=== PATIENT | female | born 1990 | race Caucasian/White ===

== ENCOUNTER → 2021-11-23 03:37 | Observation (INO) | END | disposition home or self-care (01) | LOC: 1NENULAB | PROVIDERS: ADMIT Advanced Practice Midwife; ATTEND Advanced Practice Midwife ==

== ENCOUNTER 2022-01-31 18:27 | Inpatient (IN) ==
[2022-02-01 00:49] LABS: Basophils # 0.1 K/mcL (0.0-0.2); Basophils % 0.5 %; Eosinophils # 0.2 K/mcL (0.0-0.6); Eosinophils % 1.4 %; Immature Granulocytes % 1.5 % (0-4); Lymphocytes # 3.1 K/mcL (0.6-4.6); Mean Corpuscular HGB Conc 30.9 g/dL (31.6-35.5); Mean Corpuscular Hemoglobin 29.5 pg (28.0-33.3); Mean Corpuscular Volume 95.2 fL (83.0-100.0); Mean Platelet Volume 10.4 fL (9.4-12.4); Monocytes # 0.7 K/mcL (0.0-1.3); Monocytes % 6.3 %; Neutrophils # 6.9 K/mcL (1.6-8.9); Nucleated Red Blood Cells 0.5 /100 WBC (0); Platelet Count 307 K/mcL (140-400); Red Blood Count 1.46 M/mcL (3.82-4.97); Red Cell Distribution Width 13.3 % (11.5-14.5); Segmented Neutrophils % 62.3 %
[2022-02-01 00:54] LABS: Hematocrit 13.9 % (35.3-44.9); Hemoglobin 4.3 g/dL (11.5-15.4)
[2022-02-01 01:04] LABS: BUN/Creatinine Ratio 19 (6-26); Blood Urea Nitrogen 13 mg/dL (6-20); Calcium 8.7 mg/dL (8.6-10.3); Carbon Dioxide 23 mEq/L (23-29); Chloride 105 mEq/L (98-107); Glucose 90 mg/dL (70-105); Osmolality,Calculated 284 (280-300); Potassium 3.5 mEq/L (3.5-5.1); Sodium 137 mEq/L (136-145)
[2022-02-01] MEDS ORDERED: 0.9 % Sodium Chloride 250 ML ONE ×3 (01:24→09:41)
[2022-02-01 01:33] LABS: Troponin I < 0.03 ng/mL (< 0.04)
[2022-02-01] MEDS ORDERED: *HR* FentaNYL (PF) 100 MCG/2 ML VIAL ONE (05:56)
[2022-02-01] MEDS ORDERED: *HR* Propofol 200 MG/20 ML VIAL IVP ONE (05:56)
[2022-02-01] MEDS ORDERED: *HR* Midazolam HCl 2 MG/2 ML VIAL ONE (05:56)
[2022-02-01] MEDS ORDERED: Ondansetron 4 MG/2 ML VIAL ONE (06:03)
[2022-02-01] MEDS ORDERED: Lidocaine -MPF 2% 5 ML VIAL ONE (06:03)
[2022-02-01] MEDS ORDERED: *HR* Succinylcholine 200 MG/10 ML VIAL IVP ONE (06:03)
[2022-02-01] MEDS: Ringers Solution, Lactated 1,000 ML IVC SCH (08:28)
[2022-02-01] MEDS ORDERED: miSOPROStoL 25 MCG TABLET VG SCH (09:22)
[2022-02-01] MEDS: miSOPROStoL 100 MCG TABLET VG SCH ×3 (09:46→22:41)
[2022-02-01 17:18] LABS: Basophils # 0.1 K/mcL (0.0-0.2); Basophils % 0.4 %; Eosinophils # 0.1 K/mcL (0.0-0.6); Eosinophils % 0.7 %; Immature Granulocytes % 1.4 % (0-4); Lymphocytes # 2.1 K/mcL (0.6-4.6); Lymphocytes % 18.5 %; Mean Corpuscular HGB Conc 33.3 g/dL (31.6-35.5); Mean Corpuscular Hemoglobin 30.3 pg (28.0-33.3); Mean Corpuscular Volume 90.9 fL (83.0-100.0); Mean Platelet Volume 10.1 fL (9.4-12.4); Monocytes # 0.7 K/mcL (0.0-1.3); Monocytes % 6.4 %; Neutrophils # 8.3 K/mcL (1.6-8.9); Nucleated Red Blood Cells 0.3 /100 WBC (0); Platelet Count 314 K/mcL (140-400); Red Blood Count 2.64 M/mcL (3.82-4.97); Red Cell Distribution Width 14.6 % (11.5-14.5); Segmented Neutrophils % 72.6 %; White Blood Count 11.5 K/mcL (4.3-11.1)
[2022-02-01 17:19] LABS: Hematocrit 23.5 % (35.3-44.9); Hemoglobin 7.6 g/dL (11.5-15.4); Mean Corpuscular HGB Conc 32.3 g/dL (31.6-35.5); Mean Corpuscular Hemoglobin 28.9 pg (28.0-33.3); Mean Corpuscular Volume 89.4 fL (83.0-100.0); Mean Platelet Volume 10.3 fL (9.4-12.4); Platelet Count 321 K/mcL (140-400); Red Blood Count 2.63 M/mcL (3.82-4.97); Red Cell Distribution Width 14.6 % (11.5-14.5); White Blood Count 11.3 K/mcL (4.3-11.1)
[2022-02-01] MEDS ORDERED: miSOPROStoL 100 MCG TABLET PO SCH (19:45)
[2022-02-01] MEDS ORDERED: Famotidine 20 MG/2 ML VIAL IVP PRN (21:51)
[2022-02-01] MEDS: Piperacillin/Tazobactam 3.375 GM in 0.9 % Sodium Chloride Mini Bag 100 ML IVPB SCH (22:04)
[2022-02-01 22:39] LABS: Basophils # 0.1 K/mcL (0.0-0.2); Basophils % 0.5 %; Eosinophils # 0.1 K/mcL (0.0-0.6); Eosinophils % 0.8 %; Hematocrit 22.7 % (35.3-44.9); Hemoglobin 7.6 g/dL (11.5-15.4); Immature Granulocytes % 1.1 % (0-4); Lymphocytes # 2.7 K/mcL (0.6-4.6); Lymphocytes % 23.3 %; Mean Corpuscular HGB Conc 33.5 g/dL (31.6-35.5); Mean Corpuscular Hemoglobin 29.9 pg (28.0-33.3); Mean Corpuscular Volume 89.4 fL (83.0-100.0); Mean Platelet Volume 10.2 fL (9.4-12.4); Monocytes # 0.9 K/mcL (0.0-1.3); Monocytes % 7.4 %; Neutrophils # 7.7 K/mcL (1.6-8.9); Nucleated Red Blood Cells 0.3 /100 WBC (0); Platelet Count 320 K/mcL (140-400); Red Blood Count 2.54 M/mcL (3.82-4.97); Red Cell Distribution Width 14.5 % (11.5-14.5); Segmented Neutrophils % 66.9 %; White Blood Count 11.6 K/mcL (4.3-11.1)
[2022-02-02] MEDS: miSOPROStoL 100 MCG TABLET VG SCH (05:59)
[2022-02-02] MEDS ORDERED: DOXYCYCLINE IVPB ONE (10:00)
[2022-02-02] MEDS ORDERED: SODIUM CHLORIDE MINI 0.9% IVPB ONE (10:00)
[2022-02-02] MEDS ORDERED: Doxycycline 200 MG in 0.9 % Sodium Chloride 250 ML IVPB ONE (10:16)
[2022-02-02] MEDS: Ringers Solution, Lactated 1,000 ML IVC SCH (10:24)
[2022-02-02] MEDS: Piperacillin/Tazobactam 3.375 GM in 0.9 % Sodium Chloride Mini Bag 100 ML IVPB SCH ×2 (11:54→22:15)
[2022-02-02] MEDS ORDERED: Methylergonovine 0.2 MG/ML AMPUL IM ONE (11:59)
[2022-02-02] MEDS ORDERED: Acetaminophen 325 MG TABLET PO ONE (12:45)
[2022-02-02] MEDS ORDERED: *HR* FentaNYL (PF) 100 MCG/2 ML VIAL ONE (17:45)
[2022-02-02] MEDS ORDERED: *HR* Propofol 200 MG/20 ML VIAL IVP ONE (17:45)
[2022-02-02] MEDS ORDERED: *HR* Midazolam HCl 2 MG/2 ML VIAL ONE (17:46)
[2022-02-02] MEDS ORDERED: Lidocaine HCL 4 ML Topical Solution (Laryng-O-Jet Kit Sterile Pak) TP ONE (17:46)
[2022-02-02] MEDS ORDERED: Lidocaine -MPF 2% 5 ML VIAL ONE (17:46)
[2022-02-02] MEDS ORDERED: Ondansetron 4 MG/2 ML VIAL ONE (17:46)
[2022-02-02] MEDS ORDERED: EPHEDrine 50 MG/ML VIAL ONE (19:58)
[2022-02-02] MEDS: Ibuprofen 600 MG TABLET PO SCH (23:57)
[2022-02-03 03:57] VITALS: O2SAT 98
[2022-02-03] MEDS: Ibuprofen 600 MG TABLET PO SCH (06:11)
[2022-02-03 06:58] LABS: Basophils % 0.2 %; Hematocrit 26.3 % (35.3-44.9); Hemoglobin 8.7 g/dL (11.5-15.4); Immature Granulocytes % 0.7 % (0-4); Lymphocytes # 1.9 K/mcL (0.6-4.6); Lymphocytes % 14.8 %; Mean Corpuscular HGB Conc 33.1 g/dL (31.6-35.5); Mean Corpuscular Hemoglobin 29.9 pg (28.0-33.3); Mean Corpuscular Volume 90.4 fL (83.0-100.0); Mean Platelet Volume 9.9 fL (9.4-12.4); Monocytes # 0.7 K/mcL (0.0-1.3); Monocytes % 5.7 %; Neutrophils # 10.1 K/mcL (1.6-8.9); Platelet Count 345 K/mcL (140-400); Red Blood Count 2.91 M/mcL (3.82-4.97); Red Cell Distribution Width 14.9 % (11.5-14.5); Segmented Neutrophils % 78.6 %; White Blood Count 12.9 K/mcL (4.3-11.1)
[2022-02-03 07:54] VITALS: BP 98/51; PULSE 64; TEMP 97.8
[2022-02-03] MEDS ORDERED: metroNIDAZOLE 500 MG TABLET PO SCH (09:00)
[2022-02-03] MEDS ORDERED: cephALEXin 500 MG CAPSULE PO SCH (09:00)
== END 2022-02-03 12:00 | disposition home or self-care (01) | DRG 769 ==
LOC: 1NENUOBS 18:27 → EMEROOARM 18:27 → 1NENUOBS 02-01 07:45 → 1NENUPED 02-01 20:35
PROVIDERS: ADMIT Obstetrics & Gynecology; ATTEND Obstetrics & Gynecology